=== PATIENT | female | born 1940 | race Caucasian/White ===

== ENCOUNTER → 2024-03-21 08:49 | Outpatient (REF) | payer MEDICARE, SELFPAY ==
[2024-03-21 11:55] LABS: ALT (SGPT) 20 U/L (0-35); AST (SGOT) 27 U/L (14-36); Albumin 4.1 g/dl (3.5-5.0); Alkaline Phosphatase 71 U/L (38-126); Blood Urea Nitrogen 20 mg/dl (7-17); Calcium 9.4 mg/dl (8.4-10.2); Carbon Dioxide 31 mmol/L (22-30); Chloride 102 mmol/L (98-107); Glucose 96 mg/dl (70-99); HDL Cholesterol 53 mg/dl; LDL Cholesterol, Calculated 87 mg/dl; Magnesium 2.4 mg/dl (1.6-2.3); Potassium 3.9 mmol/L (3.5-5.1); Sodium 140 mmol/L (135-145); Total Cholesterol 163 mg/dl (50-199); Triglyceride 115 mg/dl (10-149); Very Low Density Lipoprotein 23 mg/dl (0-30); eGFR > 60.00
== END ==
LOC: HWLAB 08:49
PROVIDERS: ATTENDING PHYSICIAN Family Medicine
DX: E78.2 Mixed hyperlipidemia (principal); R79.89 Other specified abnormal findings of blood chemistry; E83.41 Hypermagnesemia
CPT/HCPCS: 36415; 80053; 80061; 83735

== ENCOUNTER → 2024-07-25 10:10 | Outpatient (REF) | payer MEDICARE, SELFPAY | LOC: HWRCS 10:10 | PROVIDERS: ATTENDING PHYSICIAN Nurse Practitioner; FAMILY PHYSICIAN Family Medicine | DX: Q24.5 Malformation of coronary vessels (principal); I10 Essential (primary) hypertension; I34.0 Nonrheumatic mitral (valve) insufficiency; M79.604 Pain in right leg; M79.605 Pain in left leg; R60.9 Edema, unspecified | CPT/HCPCS: 93306 ==

== ENCOUNTER → 2025-01-14 13:19 | Outpatient (REF) | payer OTHER, SELFPAY | LOC: PAVMRI 13:19 | PROVIDERS: ATTENDING PHYSICIAN Physical Medicine & Rehabilitation; FAMILY PHYSICIAN Family Medicine | DX: M54.16 Radiculopathy, lumbar region (principal) | CPT/HCPCS: 72148 ==

== ENCOUNTER → 2025-07-08 11:48 | Outpatient (REF) | payer OTHER, SELFPAY ==
[2025-07-08 15:13] LABS: Iron 36 ug/dl (37-170)
[2025-07-08 15:22] LABS: Total Iron Binding Capacity 407 ug/dl (265-497)
[2025-07-08 15:50] LABS: Ferritin 7.9 ng/ml (11.1-264.0)
== END ==
LOC: HWLAB 11:48
PROVIDERS: ATTENDING PHYSICIAN Family Medicine
DX: D64.9 Anemia, unspecified (principal)
CPT/HCPCS: 36415; 82728; 83540; 83550

== ENCOUNTER → 2025-07-24 11:28 | Outpatient (REF) | payer OTHER, SELFPAY ==
[2025-07-24 16:20] LABS: Hematocrit 49.5 % (37.0-47.0); Hemoglobin 15.0 g/dL (12.0-16.0); Mean Corp Hgb Conc. 30.3 g/dL (33.0-37.0); Mean Corpuscular Volume 78.1 fL (81.0-99.0); Nucleated Red Blood Cells % 0 %; Platelet Count 364 10^3/uL (130-400); Red Cell Dist. Width 19.4 % (11.5-14.5)
== END ==
LOC: HWLAB 11:28
PROVIDERS: ATTENDING PHYSICIAN Internal Medicine Hematology & Oncology; FAMILY PHYSICIAN Family Medicine
DX: D45 Polycythemia vera (principal)
CPT/HCPCS: 36415; 85025

== ENCOUNTER 2025-07-30 10:40 | Outpatient (RCR) | payer OTHER, SELFPAY ==
[2025-07-30 10:50] VITALS: BP 136/68
[2025-07-30 11:10] VITALS: BP 111/63
[2025-07-30 11:15] VITALS: BP 124/60
[2025-07-30 11:25] VITALS: BP 143/69
== END 2025-07-30 23:59 | disposition home or self-care (01) ==
LOC: OID 10:40
PROVIDERS: ATTENDING PHYSICIAN Internal Medicine Hematology & Oncology; FAMILY PHYSICIAN Family Medicine
DX: D45 Polycythemia vera (principal)
CPT/HCPCS: 99195

== ENCOUNTER → 2025-08-23 11:06 | Outpatient (REF) | payer OTHER, SELFPAY ==
[2025-08-23 16:05] LABS: Hematocrit 48.1 % (37.0-47.0); Hemoglobin 14.4 g/dL (12.0-16.0); Mean Corp Hgb Conc. 29.9 g/dL (33.0-37.0); Mean Corpuscular Volume 76.3 fL (81.0-99.0); Nucleated Red Blood Cells % 0 %; Platelet Count 415 10^3/uL (130-400); Red Cell Dist. Width 19.0 % (11.5-14.5)
== END ==
LOC: HWLAB 11:06
PROVIDERS: ATTENDING PHYSICIAN Internal Medicine Hematology & Oncology; FAMILY PHYSICIAN Family Medicine
DX: D45 Polycythemia vera (principal)
CPT/HCPCS: 36415; 85025

== ENCOUNTER 2025-08-30 13:28 | Outpatient (RCR) | payer OTHER, SELFPAY ==
[2025-08-30 13:55] VITALS: BP 146/60
[2025-08-30 14:10] VITALS: BP 127/57
[2025-08-30 14:15] VITALS: BP 126/59
[2025-08-30 14:35] VITALS: BP 119/71
== END 2025-08-30 23:59 | disposition home or self-care (01) ==
LOC: OID 13:28
PROVIDERS: ATTENDING PHYSICIAN Internal Medicine Hematology & Oncology; FAMILY PHYSICIAN Family Medicine
DX: D45 Polycythemia vera (principal)
CPT/HCPCS: 99195

== ENCOUNTER 2025-09-12 11:11 | Emergency (ER) | payer OTHER, SELFPAY ==
[2025-09-12 11:20] VITALS: BP 156/91
[2025-09-12 11:43] VITALS: BP 149/67
[2025-09-12 11:57] VITALS: BMI 28.9
[2025-09-12 12:00] VITALS: BP 134/68
--- NOTE | 2025-09-12 12:10 | ED.GENMED ---
History of Present Illness
General
Chief Complaint: Chest Pain
Time Seen by Provider: 09/12/25 12:00
History of Present Illness
History of Present Illness:
Patient is a 85-year-old woman presenting to the emergency department with chest pain. Patient has history of hypertension hyperlipidemia prior [place] presenting to the emergency department with a burning in her chest. Patient states that yesterday
she developed dysuria and urinary urgency. When she was urinating she developed a burning sensation in her suprapubic region that radiated up to her chest. However at this morning patient noticed that the burning in her chest lingered slightly
longer. No history of reflux or heartburn. No history of peptic ulcer disease. She denies shortness of breath. No nausea or vomiting. No diarrhea. At this time patient has no complaints.
Past History
Past History
ED Past Medical History: None and Other (Recent non-STEMI 3 weeks ago, hyperlipidemia, hypothyroidism, GERD)
Social History
Tobacco: Non-smoker
Alcohol: Occasional
Family History
Family History: Other (Father with cancer of the prostate and kidney. Mother with diabetes and hypertension)
Phy Exam
Physical Exam
Physical Exam:
GENERAL: in no acute distress
HEENT: normocephalic, extraocular movements intact, moist oral mucosa
NECK: normal inspection
RESPIRATORY: no respiratory distress, clear to auscultation bilaterally
CARDIOVASCULAR: regular rate and rhythm, 2+ radial pulses bilaterally
ABDOMEN/: soft, non-distended, non-tender to palpation, no rebound or guarding
EXTREMITIES: non-tender, no edema/swelling
NEUROLOGIC: awake and alert, moves all extremities
SKIN: warm
Scores
Heart Score for Chest Pain Patients
STEMI patient?: No
History: Slightly or Non-Suspicious
ECG: Normal
Age: >/= 65 years
Risk Factors: 1 or 2 Risk Factors
Troponin: </= Normal Limit
Heart Score for Chest Pain Patients: 3
Heart Score Risk: 2.5% MACE over next 6 weeks
Course
Orders/Labs/Results
Orders:
Orders
09/12/25 11:12
EKG [Electrocardiogram (*1)] Urgent
Reason for Study: Chest Pain
EKG- Treatment ONCE
09/12/25 12:03
Basic Metabolic Panel Urgent
Complete Blood Count/With Diff Urgent
Troponin I Urgent
Abnormal Lab Results
09/12/25
12:03
WBC 11.4 H 10^3/uL
(4.8-10.8)
RBC 5.86 H 10^6/uL
(4.20-5.40)
MCV 72.7 L fL
(81.0-99.0)
MCH 22.0 L pg
(27.0-31.0)
MCHC 30.3 L g/dL
(33.0-37.0)
RDW 18.8 H %
(11.5-14.5)
Plt Count 433 H 10^3/uL
(130-400)
Abs Immat Gran (auto) 0.1 H 10^3/uL
(0-0.05)
Absolute Neuts (auto) 9.5 H 10^3/uL
(1.4-6.5)
Neutrophils % 82.6 H %
(42.2-75.2)
Lymphocytes % 10.4 L %
(20.5-51.1)
BUN 18 H mg/dl
(7-17)
09/12/25 12:03
09/12/25 12:03
Vital Signs
Initial and Last Documented VS:
Initial Vital Signs
Temp Pulse Resp BP Pulse Ox
98.3 F 79 16 156/91 97
09/12/25 11:20 09/12/25 11:20 09/12/25 11:20 09/12/25 11:20 09/12/25 11:20
Last Documented Vital Signs
Temp Pulse Resp BP Pulse Ox
98.3 F 73 14 134/68 97
09/12/25 11:20 09/12/25 12:00 09/12/25 12:00 09/12/25 12:00 09/12/25 12:12
MDM/Problems Addressed
Differential Diagnosis Includes:
Patient is a 85-year-old woman with history of hypertension, hyperlipidemia, prior [place] presenting to the emergency department with a burning in her chest that initially started with urination as she was diagnosed with a UTI but did notice that the
burning in her chest lingered even after urinating this morning. On arrival vitals are unremarkable. She is asymptomatic and her exam is otherwise reassuring. Differential is broad with consistent atypical ACS versus esophagitis versus UTI.
Considered pyelonephritis though no CVA tenderness. Patient is overall appearing well. Will check blood work EKG and a single troponin given the duration of symptoms.
*Pulse Oximetry
SaO2: 97
Oxygen Mode of Delivery: Room air
Patient hypoxic: no
*Critical Care Note
Total Time (30-74mins, 75-104mins- exclusive of procedures): Not Applicable
Update Note
Update Note:
On reevaluation patient resting comfortably. She does state that she had no recurrence of her chest burning sensation. She did urinate without any burning in her urine or in her chest. Blood work does show very mild leukocytosis at 11.4. She
does have thrombocytosis but is being worked up for polycythemia vera. Patient is afebrile and overall feels well. I did discuss with patient that the urine infection could also causes leukocytosis. I did offer patient admission for IV
antibiotics given that she did have an elevated white count. However patient opted to be discharged with a trial of oral antibiotics. Given the patient overall does appear well and using this is appropriate. Will discharge with strict return
precautions.
ED Attending Note
-
Portions of this chart may have been created with voice recognition software.� Occasional wrong word or��sound alike� substitutions may have occurred due to the inherent limitations of voice recognition software.
Discharge Plan
Departure
Patient Disposition: Home (Routine Discharge)
Date of Disposition: 09/12/25
Time of Disposition: 12:59
Patient with high blood pressure during this ER visit?: Yes
Discharge Problem:
Chest pain
Instructions: Chest Pain PCP Follow Up
Prescriptions:
No Action
aspirin [Ecotrin Low Strength] 81 MG tablet,delayed release (DR/EC)
81 mg PO DAILY
glucosamine [id number]-ydbcqvuols 1 EACH tablet
1 tab PO BID
Caltrate 600 plus D 1 EACH tablet,chewable
600 mg PO BID
coenzyme Q10 [Co Q-10] 10 MG capsule
1 cap PO DAILY
levothyroxine 50 MCG tablet
50 mcg PO DAILY
Patient Comments:
Patient takes synthroid 6 days/week (Tue, , Tue, , Tue, Sat)
biotin 5 mg Capsule
5 mg PO DAILY
famotidine 20 mg Tablet
20 mg PO DAILY
hydrochlorothiazide 12.5 mg Capsule
12.5 mg PO DAILY
pravastatin 20 mg Tablet
20 mg PO .QPM
metoprolol succinate 25 mg Tablet Extended Release 24 Hr
25 mg PO .QPM
fluticasone propionate 50 mcg/actuation [place],Suspension
50 mcg INTRANASAL DAILY
ezetimibe 10 mg Tablet
10 mg PO .QPM
cholecalciferol (vitamin D3) [Vitamin D3] 50 mcg (2,000 unit) Tablet
50 mcg PO DAILY
Referrals:
UNKNOWN - PT DOES,NOT KNOW [Family Provider]
Activity Restrictions/Additional Instructions:
Thank You for choosing [facility].
It was a pleasure meeting you and taking part in your care. We hope for your continued healing and wellness.
You were seen in the Emergency Department today for burning in your chest. While you were here we performed blood work, which did show a slight elevation in your white count. Please make sure you take the antibiotics as your primary care doctor
prescribed. We did discuss admitting you to the hospital for IV antibiotics but you opted to be discharged to trial oral antibiotics at home. If you develop any worsening of your symptoms fevers or chills please immediately come back to the
emergency department.
We would like for you to follow up with your primary care physician for further evaluation. If you experience fever, worsening of your symptoms, or develop any other new or concerning symptoms, please return to the Emergency Department immediately.
Please see the attached sheet for additional information.
Interventions
Interventions:
*Risk Screen - Suicide Last Done: 09/12/25 11:20
*General Assessment Last Done: 09/12/25 11:58
*Neglect/Abuse Screening Last Done: 09/12/25 11:20
*ED- Fall Risk Assessment Last Done: 09/12/25 11:58
*ED COVID-19 Vaccine History Last Done: 09/12/25 11:58
*ED Influenza Vaccine History Last Done: 09/12/25 11:58
ED- Cardiac Assessment Last Done: 09/12/25 11:58
Discharge Date and Time
Print Language: HEBREW
[2025-09-12 12:33] LABS: Hematocrit 42.6 % (37.0-47.0); Hemoglobin 12.9 g/dL (12.0-16.0); Mean Corp Hgb Conc. 30.3 g/dL (33.0-37.0); Mean Corpuscular Volume 72.7 fL (81.0-99.0); Nucleated Red Blood Cells % 0 %; Platelet Count 433 10^3/uL (130-400); Red Cell Dist. Width 18.8 % (11.5-14.5)
[2025-09-12 12:36] LABS: Blood Urea Nitrogen 18 mg/dl (7-17); Calcium 9.4 mg/dl (8.4-10.2); Carbon Dioxide 30 mmol/L (22-30); Chloride 102 mmol/L (98-107); Estimated Creatinine Clearance 54 ml/min; Glucose 91 mg/dl (70-99); Potassium 3.8 mmol/L (3.5-5.1); Sodium 139 mmol/L (135-145); eGFR > 60.00
[2025-09-12 12:46] LABS: Troponin I 0.014 ng/ml
[2025-09-12 13:00] VITALS: BP 143/58
[2025-09-12 13:04] VITALS: BP 143/58
== END 2025-09-12 13:10 | disposition home or self-care (01) ==
LOC: EMR 11:11
PROVIDERS: EMERGENCY PHYSICIAN Student in an Organized Health Care Education/Training Program
DX: R07.9 Chest pain, unspecified (principal); D72.829 Elevated white blood cell count, unspecified; I10 Essential (primary) hypertension; E78.5 Hyperlipidemia, unspecified; I25.2 Old myocardial infarction; E03.9 Hypothyroidism, unspecified; K21.9 Gastro-esophageal reflux disease without esophagitis; Z82.49 Family history of ischemic heart disease and other diseases of the circulatory system
CPT/HCPCS: 99284; 80048; 84484; 85025; 93005

== ENCOUNTER 2025-09-24 06:20 | Day surgery (SDC) | payer OTHER, SELFPAY | END 2025-09-24 12:54 | disposition home or self-care (01) | LOC: GI 06:20 | PROVIDERS: ATTENDING PHYSICIAN Internal Medicine | DX: D12.2 Benign neoplasm of ascending colon (principal); D12.3 Benign neoplasm of transverse colon; K63.89 Other specified diseases of intestine; K55.20 Angiodysplasia of colon without hemorrhage; K57.30 Diverticulosis of large intestine without perforation or abscess without bleeding; K64.8 Other hemorrhoids; K64.4 Residual hemorrhoidal skin tags; D50.9 Iron deficiency anemia, unspecified; K29.50 Unspecified chronic gastritis without bleeding; K44.9 Diaphragmatic hernia without obstruction or gangrene; K31.7 Polyp of stomach and duodenum; K31.89 Other diseases of stomach and duodenum; K31.819 Angiodysplasia of stomach and duodenum without bleeding; K86.89 Other specified diseases of pancreas | CPT/HCPCS: 43255; 45385; 45380; 45382; 43239; 88305; 88341; 88342 ==

== ENCOUNTER 2025-10-16 13:32 | Outpatient (RCR) | payer OTHER, SELFPAY ==
[2025-10-16 13:54] VITALS: BP 138/62
[2025-10-16 14:30] VITALS: BP 130/59
[2025-10-16 14:33] VITALS: BP 121/65
[2025-10-16 14:35] VITALS: BP 115/57
== END 2025-10-30 23:59 | disposition home or self-care (01) ==
LOC: OID 13:32
PROVIDERS: ATTENDING PHYSICIAN Internal Medicine Hematology & Oncology; FAMILY PHYSICIAN Family Medicine
DX: D45 Polycythemia vera (principal); R53.83 Other fatigue
CPT/HCPCS: 99195